=== PATIENT | female | born 1955 | race Hispanic/Latino ===

== ENCOUNTER → 2017-07-21 | Outpatient (CLI) | payer MEDICARE ==
[~2017-07-21] MED LIST: B-122500 MCG SL; BENZONATATE100 MG PO; BROVANA15 MCG/2 M INH; CEPHALEXIN500 MG PO; ESCITALOPRAM OX20 MG PO; FAMOTIDINE20 MG PO; HYDROCHLOROTHIA25 MG PO; LISINOPRIL10 MG PO; LORAZEPAM0.5 MG PO; LOSARTAN-HCTZ1 EACH PO; MELOXICAM15 MG PO; METOCLOPRAMIDE10 MG PO; NITROSTAT0.4 MG PO; NUCYNTA50 MG PO; OMEPRAZOLE40 MG PO; ONDANSETRON HCL8 MG PO; OXAPROZIN600 MG PO; PANTOPRAZOLE SO40 MG PO; QUETIAPINE FUMA50 MG PO; RANITIDINE HCL300 MG PO; SIMVASTATIN10 MG PO; SYMBICORT 16010.2 GM INH; TEGRETOL XR100 MG PO; XOLAIR150 MG PO; [UNRECOGNIZED DRUG - OTHER] PO
--- NOTE | 2017-07-21 17:34 | Diagnostic Imaging Report ---
Exam: Maxillofacial sinus CT without contrast. History: Cough, sinus congestion, frontal sinus pain Comparison studies: None Technique: Axial images were obtained through the paranasal sinuses. Coronal and sagittal images reconstructed from the axial data. Intravenous contrast: None Findings: Paranasal sinuses: The frontal sinuses, ethmoid air cells, sphenoid sinuses and maxillary sinuses are clear. The bilateral ostiomeatal units, frontoethmoidal and sphenoethmoidal recesses are patent. 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 Other: Nasal vestibule and cavity: Patent Nasal septum: Minimally deviated to the patient's left with small leftward projecting osseous spur at the level of the left middle nasal dillan. Agger Nasi: Clear bilaterally. Turbinates: Non-aerated bilaterally. Dorian cells: None Lamina papyracea: Intact. Cribriform plate: Asymmetric: Approximately 4 mm below the fovea ethmoidalis on the right and up to 8 mm on the left. Olfactory recesses: Clear Optic nerves: Not dehiscent Onodi cells: None Internal carotid canals: Not dehiscent. Sphenoid sinuses: Relatively symmetric in size. Sphenoid septum inserts posteriorly near the midline superiorly into the right of midline posteriorly. The lateral recesses are aerated. Orbits: No abnormalities. Bones: No abnormalities. Temporal bones: No abnormalities. Incidental pneumatized petrous apices, a normal anatomical variant. Incidental findings: Moderate bilateral facet arthrosis at C2-C3. IMPRESSION: 1. Clear paranasal sinuses with patent sinus drainage pathways. 2. 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 Signed by: Dr. Alexander Gray M.D. on 07/21/2017 5:31 PM
== END ==
LOC: CT 08:34
PROVIDERS: ATTEND Internal Medicine Critical Care Medicine
DX: J32.9 Chronic sinusitis, unspecified (principal)
CPT/HCPCS: 70486

== ENCOUNTER → 2020-04-26 | Day surgery (SDC) | payer MEDICARE ==
[2020-04-23 10:20] LABS: BASOPHILS % 0.1 % (0.0-1.0); HEMATOCRIT 40.5 % (34.2-44.1); HEMOGLOBIN 13.1 g/dL (12.0-16.0); LYMPHOCYTES # (AUTO) 2.2 (1.0-3.2); LYMPHOCYTES % 28.5 % (18.0-39.1); MEAN CORPUSCULAR HEMOGLOBIN 27.6 pg (28-32); MEAN CORPUSCULAR HGB CONC 32.3 g/dL (31-35); MEAN CORPUSCULAR VOLUME 85.4 fL (81-99); MONOCYTES # (AUTO) 0.7 (0.2-0.8); MONOCYTES % 8.7 % (4.4-11.3); NEUTROPHILS # (AUTO) 4.8 (2.1-6.9); NEUTROPHILS % 62.6 % (38.7-80.0); PLATELET COUNT 400 x10e3/uL (140-360); RED BLOOD COUNT 4.74 x10e6/uL (3.6-5.1); RED CELL DISTRIBUTION WIDTH 13.3 % (11.7-14.4)
[~2020-04-26] MED LIST changes: +AMITRIPTYLINE H25 MG PO; +CYMBALTA30 MG PO; +DICYCLOMINE HCL20 MG PO; +DOMPERIDONE PO; +FENTANYL CITRATE/PF 100MCG/2 ML INJ ONE; +GLUCAGON FOR INJ 1 MG VIAL ONE; +HYOSCYAMINE 0.125 MG TAB ONE; +LAMOTRIGINE100 MG PO; +LIDOCAINE HCL 2% LOCAL INJ 5 ML SDV VIAL INJ ONE; +LOSARTAN POTAS100 MG PO; +MIDAZOLAM HCL 2 MG/2 ML VIAL ONE; +PROPOFOL IV EMULSION 10 MG/ML 20 ML VIAL ONE
[2020-04-26 10:25] VITALS: BP 157/61
--- NOTE | 2020-04-26 11:09 | Operative Report ---
DATE OF PROCEDURE: 04/26/2020 SURGEON: Alhaji Romero MD PROCEDURE: EGD with polypectomy and biopsies, and a colonoscopy. INDICATIONS FOR EGD: Upper abdominal pain, bloating, acid reflux. INDICATIONS FOR COLONOSCOPY: Surveillance colonoscopy, personal history of colon polyps. MEDICATIONS: The patient was done under MAC, please see anesthesiologist's note. PROCEDURE IN DETAIL: With the patient in left lateral decubitus position, a flexible fiberoptic Olympus gastroscope was introduced into the esophagus under direct visualization without any difficulty. There was some patchy erythema noted in distal esophagus. The scope was then advanced with ease into the stomach. Mucosa overlying the antrum and the body revealed some patchy intense erythema and [id number] edema. Biopsies were obtained sent to stain for H. pylori. Hyperplastic-appearing polyps were noted in the body of the stomach and somewhat partially excised with the cold biopsy forceps. The pylorus was of normal contour and shape, was intubated with ease and the scope was advanced all the way to the second portion of the duodenum. The scope was then withdrawn slowly and mucosa overlying the proximal second portion and the duodenal bulb appeared to be within normal limits. Biopsies were obtained to rule out sprue. The scope was then withdrawn back into the stomach and retroflexed, and mucosa overlying the fundus and cardia appeared to be within normal limits. The scope was then straightened out, it was subsequently withdrawn. The patient tolerated the procedure well. IMPRESSION: 1. Distal esophagitis, mild. 2. Gastritis, biopsied. Biopsies sent to stain for H pylori. 3. Gastric polyps, hyperplastic-appearing, body, some partially excised with cold biopsy forceps. 4. Rule out sprue. PLAN: Follow up histology. Continue Protonix 40 mg one p.o. q.a.m. a.c. Add Pepcid 40 mg one p.o. at bedtime pain and Carafate 1 g p.o. a.c. t.i.d. and at bedtime. The patient was then turned around and after adequate lubrication of the anal canal, a flexible fiberoptic Olympus colonoscope was inserted into the rectum with ease and advanced all the way to the cecum. It was then withdrawn slowly and there was some moderate amount of retained fecal material in the cecum and the ascending colon. Significant part was washed and suctioned, and visualization was still suboptimal of the cecum. Whatever was visualized through the ascending colon, transverse colon appeared to be within normal limits. The descending, sigmoid, and rectum grossly appeared to be within normal limits. The scope was then retroflexed into the distal rectum. Small internal hemorrhoids were noted, none of which was actively bleeding. The scope was then straightened out, it was subsequently withdrawn. The patient tolerated the procedure well. IMPRESSION: 1. Suboptimal prep, but no obvious obstructing or constricting lesions. 2. Internal hemorrhoids none actively bleeding. PLAN: Initiate high-fiber, low-fat diet. Initiate high-fiber supplement. The patient might benefit from a followup colonoscopy in 2 years. Alhaji Romero MD [facility] [place] /[id number] cc: Kishan Sorenson MD
== END | disposition home or self-care (01) ==
LOC: OR 07:34
PROVIDERS: ATTEND Internal Medicine Gastroenterology
DX: K29.50 Unspecified chronic gastritis without bleeding (principal); K63.5 Polyp of colon; K31.7 Polyp of stomach and duodenum; K21.9 Gastro-esophageal reflux disease without esophagitis; K20.90 Esophagitis, unspecified without bleeding; K64.8 Other hemorrhoids; K59.00 Constipation, unspecified; J45.909 Unspecified asthma, uncomplicated; I10 Essential (primary) hypertension; M81.0 Age-related osteoporosis without current pathological fracture; E78.00 Pure hypercholesterolemia, unspecified; F41.0 Panic disorder [episodic paroxysmal anxiety]; Z88.6 Allergy status to analgesic agent; Z88.8 Allergy status to other drugs, medicaments and biological substances; Z01.810 Encounter for preprocedural cardiovascular examination; Z01.812 Encounter for preprocedural laboratory examination; Z11.59 Encounter for screening for other viral diseases; Z68.38 Body mass index [BMI] 38.0-38.9, adult
CPT/HCPCS: 36415; 43239; 45378; 85025; 93005; J1610; J2001; J2250; J2704; J3010; U0002

== ENCOUNTER → 2021-02-15 | Outpatient (CLI) | payer MEDICARE ==
[~2021-02-15] MED LIST changes: -FENTANYL CITRATE/PF 100MCG/2 ML INJ ONE; -GLUCAGON FOR INJ 1 MG VIAL ONE; -HYOSCYAMINE 0.125 MG TAB ONE; +IOPAMIDOL 370 MG/ML 200 ML INFUS..BTL INJ ONE; -LIDOCAINE HCL 2% LOCAL INJ 5 ML SDV VIAL INJ ONE; -MIDAZOLAM HCL 2 MG/2 ML VIAL ONE; -PROPOFOL IV EMULSION 10 MG/ML 20 ML VIAL ONE; +SODIUM CHLORIDE 0.9% 50ML 50 ML ONE
[2021-02-18 13:14] LABS: CREATININE, SERUM 0.61 mg/dL (0.57-1.11)
[2021-02-18 13:15] LABS: EST GLOMERULAR FILTRATION RATE > 60 ML/MIN (60-)
== END ==
LOC: CT 15:24
PROVIDERS: ATTEND Internal Medicine Gastroenterology
DX: R10.12 Left upper quadrant pain (principal)
CPT/HCPCS: 36415; 74160; 82565; Q9967